=== PATIENT | male | born 1985 | race African-American/Black ===

== ENCOUNTER 2022-05-13 07:23 | Emergency (ER) | payer SELFPAY ==
[~2022-05-13] VITALS: Ht 182.9 cm; Wt 75.0 kg
[2022-05-13] MEDS ORDERED: ONDANSETRON HCL INJ 2MG/ML 2ML 2 MG/ML VIAL ONE (07:47)
[2022-05-13] MEDS ORDERED: ONDANSETRON HCL INJ 2MG/ML 2ML 2 MG/ML VIAL IV STA (07:54)
[2022-05-13] MEDS ORDERED: SODIUM CHLORIDE 0.9% 1000ML 1,000 ML IV STA ×2 (07:54→08:26)
[2022-05-13] MEDS ORDERED: ONDANSETRON ODT4 MG PO (08:33)
[2022-05-13] MEDS ORDERED: SODIUM CHLORIDE 0.9% 1000ML 1,000 ML ONE (08:39)
== END 2022-05-13 09:17 | disposition home or self-care (01) ==
LOC: FSED 07:39
DX: R11.2 Nausea with vomiting, unspecified (principal); R19.7 Diarrhea, unspecified; F17.210 Nicotine dependence, cigarettes, uncomplicated
CPT/HCPCS: 80048; 80076; 81003; 85025; 96374; 99283; J2405; J7030